=== PATIENT | male | born 1960 | race Caucasian/White ===

== ENCOUNTER 2021-09-27 22:22 | Inpatient (IN) | payer OTHER ==
[~2021-09-27] VITALS: Ht 193 cm; Wt 82.1 kg
[2021-09-27 22:47] LABS: HEMOGLOBIN 11.3 gm/dl (14.0-17.5); RED BLOOD COUNT 4.04 M/UL (4.20-5.50); WHITE BLOOD COUNT 6.9 K/UL (4.5-11.0)
[2021-09-27 23:15] LABS: BUN/CREATININE RATIO 18 (0-10)
[2021-09-28] MEDS ORDERED: ASPIRIN EC81 MG PO (10:06)
[2021-09-28] MEDS ORDERED: PROAIR HFA8.5 GM INH (10:06)
[2021-09-28] MEDS ORDERED: ELIQUIS5 MG PO (10:06)
[2021-09-28] MEDS ORDERED: THEREMS-M TABL1 EACH PO (10:06)
[2021-09-28] MEDS ORDERED: ATORVASTATIN CA40 MG PO (10:06)
[2021-09-28] MEDS ORDERED: CARVEDILOL6.25 MG PO (10:07)
[2021-09-28] MEDS ORDERED: FARXIGA5 MG PO (10:07)
[2021-09-28] MEDS ORDERED: CLOPIDOGREL75 MG PO (10:07)
[2021-09-28] MEDS ORDERED: B-121000 MCG PO (10:07)
[2021-09-28] MEDS ORDERED: GLIPIZIDE10 MG PO (10:08)
[2021-09-28] MEDS ORDERED: LASIX40 MG PO (10:08)
[2021-09-28] MEDS ORDERED: FAMOTIDINE40 MG PO (10:08)
[2021-09-28] MEDS ORDERED: VITAMIN D21250 MCG PO (10:08)
[2021-09-28] MEDS ORDERED: ENTRESTO 49 MG1 EACH PO (10:09)
[2021-09-28] MEDS ORDERED: ONDANSETRON ODT8 MG PO (10:09)
[2021-09-28] MEDS ORDERED: POTASSIUM CHLO10 ME1 PO (10:09)
[2021-09-28] MEDS ORDERED: METFORMIN HCL1000 MG PO (10:09)
[2021-09-29 03:05] LABS: HEMOGLOBIN 10.1 gm/dl (14.0-17.5); RED BLOOD COUNT 3.64 M/UL (4.20-5.50); WHITE BLOOD COUNT 7.6 K/UL (4.5-11.0)
[2021-09-29 03:52] LABS: BUN/CREATININE RATIO 27 (0-10)
[2021-09-29 09:14] LABS: INSULIN 41.2 uIU/mL (2.6-24.9)
[2021-09-29 11:14] LABS: C-PEPTIDE, SERUM 13.9 ng/mL (1.1-4.4)
[2021-09-30 06:43] LABS: BUN/CREATININE RATIO 24 (0-10)
[2021-10-01 06:36] LABS: HEMOGLOBIN 10.5 gm/dl (14.0-17.5); RED BLOOD COUNT 3.73 M/UL (4.20-5.50); WHITE BLOOD COUNT 5.7 K/UL (4.5-11.0)
[2021-10-01 06:55] LABS: BUN/CREATININE RATIO 26 (0-10)
[2021-10-01] MEDS ORDERED: LASIX40 MG PO (09:59)
[2021-10-01] MEDS ORDERED: ISOSORBIDE MONO30 MG PO (14:21)
== END 2021-10-01 15:27 | disposition home or self-care (01) | DRG 291 ==
LOC: ER1 22:22 → CDU 09-28 04:40 → PROG CARE 09-28 04:40 → MED SURG 4 09-28 04:40 → PROG CARE 09-28 14:20 → MED SURG 4 09-29 17:55
PROVIDERS: Internal Medicine Infectious Disease; Physician Assistant Medical; ADMIT Internal Medicine
PROC: B24BZZZ Ultrasonography of Heart with Aorta (ICD-10-PCS; principal; 2021-09-29)
DX: I11.0 Hypertensive heart disease with heart failure (principal); G93.41 Metabolic encephalopathy; Z20.822 Contact with and (suspected) exposure to COVID-19; I50.23 Acute on chronic systolic (congestive) heart failure; E11.649 Type 2 diabetes mellitus with hypoglycemia without coma; I42.9 Cardiomyopathy, unspecified; R79.89 Other specified abnormal findings of blood chemistry; H53.8 Other visual disturbances; I08.3 Combined rheumatic disorders of mitral, aortic and tricuspid valves; D64.9 Anemia, unspecified; I25.10 Atherosclerotic heart disease of native coronary artery without angina pectoris; Z95.5 Presence of coronary angioplasty implant and graft; Z86.73 Personal history of transient ischemic attack (TIA), and cerebral infarction without residual deficits; Z79.01 Long term (current) use of anticoagulants; Z79.82 Long term (current) use of aspirin; Z83.3 Family history of diabetes mellitus; Z90.49 Acquired absence of other specified parts of digestive tract; Z79.4 Long term (current) use of insulin
CPT/HCPCS: ECHO; 36415; 70450; 70551; 71045; 78452; 80048; 80053; 82533; 82550; 82553; 82962; 83036; 83735; 83880; 84100; 84439; 84443; 84484; 84681; 85025; 93005; 93017; 93306; 93880; 94760; 96365; 96375; 96376; 97161; 97165; 99285; A9502; J1610; J1940; J2785; J3475; Q9967